=== PATIENT | female | born 1970 | race Caucasian/White ===

== ENCOUNTER 2016-03-07 13:23 | Emergency (ER) | payer OTHER ==
[~2016-03-07] VITALS: Ht 170.2 cm; Wt 75.0 kg
[~2016-03-07 13:23] MED LIST: ATIVAN; ATIVAN 1MG T1 MG/TAB PO; DESYREL 100MG100 MG PO; DOXYCYCLINE 10100 MG PO; ESCITALOPRAM; FLAGYL500 MG PO; FLEXERIL; FLEXERIL 1010 MG/TAB PO; IMITREX25 MG PO; K-TAB20 PO; LAMICTAL; LAMICTAL200 MG PO; LEVAQUIN 5500 MG/TA1 PO; LEVAQUIN 750MG750 M1 PO; LEVBID0.375 MG PO; MEDROL 4MG DOSPA4 MG PO; NORCO 325 MG-51 TAB PO; NORCO 325 MG-7.1 TAB PO; PERCOCET 325 MG1 TA2 PO; PHENERGAN 25 TA25 MG; PHENERGAN 25 TA25 MG PO; PHENERGAN25 MG RC; PREDNISONE10 MG PO; TEMAZEPAM; TOPAKAX; TOPAMAX50 MG PO; ULTRAM 50MG TAB50 MG PO; VALIUM 5MG T5 MG/TAB PO; VICOPROFEN 201 UDTAB PO; ZOFRAN 4MG T4 MG/TAB PO; ZOFRAN ODT4 MG PO; ZOFRAN8 MG PO
[2016-03-07 13:24] VITALS: BP 131/101; TEMP 99.4
[2016-03-07 14:55] VITALS: PULSE 106
== END 2016-03-07 14:56 | disposition home or self-care (01) ==
LOC: COL.ER 13:23
DX: S39.012A Strain of muscle, fascia and tendon of lower back, initial encounter (principal); S46.912A Strain of unspecified muscle, fascia and tendon at shoulder and upper arm level, left arm, initial encounter; Y01.XXXA Assault by pushing from high place, initial encounter; C91.10 Chronic lymphocytic leukemia of B-cell type not having achieved remission; F17.210 Nicotine dependence, cigarettes, uncomplicated

== ENCOUNTER 2016-04-17 16:59 | Emergency (ER) | payer OTHER ==
[~2016-04-17] VITALS: Ht 170.2 cm; Wt 75.0 kg
[2016-04-17 17:02] VITALS: TEMP 98.5
[2016-04-17] MEDS ORDERED: PERCOCET 325 MG1 TA3 PO (17:06)
[2016-04-17] MEDS ORDERED: VALIUM 5MG T5 MG/TAB PO (17:06)
[2016-04-17] MEDS ORDERED: MACROBID 1100 MG/CAP PO (17:41)
[2016-04-17 17:59] LABS: BASO % 0.4 % (0.0-2.0); EOS # 0.1 (0.0-0.7); EOS % 1.2 % (0-4.0); GRAN # 6.9 (1.4-6.5); GRAN % 69.5 % (42.2-75.2); HEMATOCRIT 37.2 % (37.0-47.0); LYMPH # 2.4 (1.2-3.4); LYMPH % 24.5 % (20.0-51.0); MEAN CELL VOLUME 86 fl (80.0-100.0); MEAN CORPUSCULAR HEMOGLOBIN 30 pg (27.0-31.0); MEAN CORPUSCULAR HGB CONC 35 g/dl (33.0-37.0); MEAN PLATELET VOLUME 9.4 fl (7.4-10.4); MONO # 0.4 (0.1-0.6); MONO % 4.1 % (1.7-9.3); PLATELET COUNT 263 K/mm3 (130-400); RED BLOOD COUNT 4.32 M/mm3 (4.10-5.30); REDCELL DISTRIBUTION WIDTH-CV 12.1 % (11.5-14.5); WHITE BLOOD COUNT 9.9 K/mm3 (4.8-10.8)
[2016-04-17 18:17] LABS: ADJUSTED CALCIUM 9.5 mg/dL (8.4-10.2); ALBUMIN 4.5 gm/dL (3.5-5.0); BILIRUBIN,TOTAL 0.7 mg/dL (0.0-1.0); C-REACTIVE PROTEIN 1.5 mg/dL (0.0-0.9); CALCIUM 9.9 mg/dL (8.4-10.2); CREATININE, serum 0.69 mg/dL (0.52-1.25); POTASSIUM 3.3 mmol/L (3.4-5.0); TOTAL PROTEIN 7.7 gm/dL (6.4-8.2)
[2016-04-17 19:20] VITALS: BP 124/93; PULSE 93
== END 2016-04-17 19:20 | disposition home or self-care (01) ==
LOC: COL.ER 16:59
PROVIDERS: Emergency Medicine
DX: G89.18 Other acute postprocedural pain (principal); M54.5 Low back pain
CPT/HCPCS: J1170; J2060; J2405; J2550; J7030